=== PATIENT | male | born 1965 | race Caucasian/White ===

== ENCOUNTER 2019-04-02 12:37 | Day surgery (SDC) | payer OTHER ==
[~2019-04-02] VITALS: Ht 195.6 cm; Wt 90.6 kg
[2019-04-02] MEDS ORDERED: METOPROLOL (13:24)
[2019-04-02] MEDS ORDERED: MELATONIN (13:24)
[2019-04-02] MEDS ORDERED: BACLOFEN (13:24)
[2019-04-02] MEDS ORDERED: PRAVASTATIN (13:24)
[2019-04-02] MEDS ORDERED: IBUPROFEN (13:24)
[2019-04-02] MEDS ORDERED: ASPIRIN (13:24)
[2019-04-02] MEDS ORDERED: GABAPENTIN (13:24)
[2019-04-02 13:34] VITALS: Ht 195.6 cm; Wt 90.6 kg
[2019-04-02 14:11] VITALS: BP 170/103; PULSE 65; RESP 18
[2019-04-02] MEDS ORDERED: LIDOCAINE 4% SOLUTION 50 ML BTL ONE (14:20)
[2019-04-02] MEDS ORDERED: MIDAZOLAM 1 MG/ML 2 ML INJ ONE ×3 (15:17)
[2019-04-02] MEDS ORDERED: FENTAnyl 50 MCG/ML VIAL ONE ×2 (15:17)
== END 2019-04-02 16:29 | disposition home or self-care (01) ==
LOC: GIL 12:37
PROVIDERS: ATTEND Internal Medicine
DX: Z12.11 Encounter for screening for malignant neoplasm of colon (principal); K64.4 Residual hemorrhoidal skin tags; D12.4 Benign neoplasm of descending colon; D12.0 Benign neoplasm of cecum; K20.8 Other esophagitis; I85.10 Secondary esophageal varices without bleeding; K29.00 Acute gastritis without bleeding; K76.6 Portal hypertension; K31.89 Other diseases of stomach and duodenum; F17.200 Nicotine dependence, unspecified, uncomplicated; Z79.82 Long term (current) use of aspirin
CPT/HCPCS: 43235; 45380; 82962; 88305; J2250; J3010; Z7610